=== PATIENT | female | born 1955 | race Caucasian/White ===

== ENCOUNTER 2021-03-05 16:21 | Emergency (ER) | payer OTHER ==
[~2021-03-05] VITALS: Ht 170.2 cm; Wt 65.3 kg
[2021-03-05 16:24] VITALS: BP 153/90
[2021-03-05] MEDS ORDERED: PHENAZOPYRIDINE 200 MG TABLET PO ONE (17:00)
[2021-03-05] MEDS ORDERED: PHENAZOPYRIDINE 200 MG TABLET ONE (17:01)
[2021-03-05 17:22] LABS: BASOPHILS % (AUTO) 1 % (0-1); EOSINOPHILS % (AUTO) 5 % (1-7); LYMPHOCYTES % (AUTO) 34 % (22-44); MEAN CORPUSCULAR HEMOGLOBIN 30.7 pg (27.0-34.8); MEAN CORPUSCULAR HGB CONC 33.7 g/dL (32.4-35.8); MEAN PLATELET VOLUME 8.5 fL (7.4-10.4); MONOCYTES % (AUTO) 11 % (2-9); NEUTROPHILS % (AUTO) 49 % (42-75); PLATELET COUNT 240 x10^3/uL (130-400); RED BLOOD COUNT 4.03 x10^6/uL (3.82-5.3); RED CELL DISTRIBUTION WIDTH 14.2 % (9.6-15.2)
[2021-03-05 17:32] LABS: ALBUMIN 3.5 g/dL (3.4-5.0); ANION GAP 4 mmol/L (5-15); CALCIUM 8.5 mg/dL (8.5-10.1); CHLORIDE 112 mmol/L (98-107); CREATININE 1.01 mg/dL (0.55-1.02)
[2021-03-05 18:08] LABS: MICROSCOPIC INDICATED
== END 2021-03-05 18:32 | disposition home or self-care (01) ==
LOC: ED 16:51
DX: N30.01 Acute cystitis with hematuria (principal); I10 Essential (primary) hypertension; Z85.528 Personal history of other malignant neoplasm of kidney
CPT/HCPCS: 36415; 80048; 81001; 82040; 85025; 87086; 99283